=== PATIENT | male | born 1995 | race Caucasian/White ===

== ENCOUNTER 2016-10-11 14:15 | Emergency (ER) | payer OTHER | END 2016-10-11 15:14 | disposition home or self-care (01) | LOC: ER 14:15 | DX: S90.461A Insect bite (nonvenomous), right great toe, initial encounter (principal); W57.XXXA Bitten or stung by nonvenomous insect and other nonvenomous arthropods, initial encounter; F17.210 Nicotine dependence, cigarettes, uncomplicated; Z88.6 Allergy status to analgesic agent | CPT/HCPCS: 99282; 99283 ==